=== PATIENT | male | born 1955 | race Caucasian/White ===

== ENCOUNTER 2021-01-08 08:49 | Day surgery (SDC) | payer BC ==
[2021-01-08] VITALS (15 sets, daily range): BP systolic 83–136; BP diastolic 51–85; PULSE 49–94; TEMP 98.2
[~2021-01-08] VITALS: Ht 175.3 cm; Wt 96.5 kg
[~2021-01-08 08:49] MED LIST: 00186-0370-20 IH; ALLEGRA 180MG180 MG PO; ALLEGRA180 MG PO; ARGININE PO; ASPIRIN 32325 MG/TAB PO; BIAXIN FILMTAB500 MG PO; BIAXIN PO; CALCIUM LACTAT100 MG PO; CARTIA XT240 MG PO; CLARITIN 1010 MG/TAB PO; DALVANCE IV; DIGOXIN0.25 MG PO; FEXOFENADINE180 MG PO; FISH OIL1000 MG PO; FLEXERIL 1010 MG/TAB PO; FLOVENT 220MCG7.9 GM IH; GARLIC SUPPLEM300 MG PO; GENTAMICIN180 MG/501 NS; L-ARGININE500 M2 PO; LEVAQUIN 750MG750 M1 PO; LOPRESSOR 550 MG/TAB PO; MULTI VITAMINS1 TAB PO; NO HOME MEDICATIONS; NORCO 325 MG-51 TAB PO; PREDNISONE10 MG PO; PREDNISONE20 MG; PREDNISONE20 MG PO; PROVENTIL0.09 MG/A1 IH; RT ALBUTER2.5 MG/0.5 IH; SINGULAIR 110 MG/TAB PO; SINGULAIR10 MG PO; SUPER EPA 1201200 MG PO; SYMBICORT1 AE1; VENTOLIN0.09 MG IH; VITAMIN B COMPL1 TA1 PO; VITAMIN C BUFF500 MG PO; VITAMIN C500 MG PO; VITAMIN E1000 U/CAP PO; XARELTO STARTER20 MG PO; XARELTO20 MG PO; XOPENEX 3 ML3 M1 IH; ZITHROMAX 250M250 MG; ZITHROMAX 250M250 MG PO
[2021-01-08 09:29] LABS: HEMATOCRIT 47.9 % (42.0-52.0); HEMOGLOBIN 16.4 g/dl (13.5-18.0); MEAN CELL VOLUME 91 fl (80.0-100.0); MEAN CORPUSCULAR HEMOGLOBIN 31 pg (27.0-31.0); MEAN CORPUSCULAR HGB CONC 34 g/dl (33.0-37.0); MEAN PLATELET VOLUME 9.8 fl (7.4-10.4); PLATELET COUNT 234 K/mm3 (130-400); RED BLOOD COUNT 5.25 M/mm3 (4.20-5.60)
[2021-01-08 09:36] LABS: INR 1.2 (0.8-3.0); PROTHROMBIN TIME 12.8 SECONDS (9.7-12.8)
[2021-01-08 09:38] LABS: PARTIAL THROMBOPLASTIN TIME 32.8 SECONDS (26.0-37.0)
[2021-01-08 09:46] LABS: CREATININE, serum 0.81 mg/dL (0.72-1.25); POTASSIUM 3.8 mmol/L (3.5-4.5)
[2021-01-08] MEDS ORDERED: 00186-0370-20 IH (09:48)
[2021-01-08] MEDS ORDERED: SPIRIVA RESPIMAT4 GM IH (09:48)
[2021-01-08] MEDS ORDERED: PROTONIX 40MG T40 MG PO (09:49)
[2021-01-08] MEDS ORDERED: ZYRTEC 10MG10 MG PO (09:49)
[2021-01-08] MEDS ORDERED: PROAIR HFA0.09 MG/AC IH (09:49)
[2021-01-08] MEDS ORDERED: ZESTRIL 10MG10 MG PO (09:50)
[2021-01-08] MEDS ORDERED: XARELTO20 MG PO (09:50)
[2021-01-08] MEDS ORDERED: NATURE'S BLEND100 M2 PO (09:51)
[2021-01-08] MEDS ORDERED: MASON NATURAL2000 IU PO (09:51)
[2021-01-08] MEDS ORDERED: TOPROL XL 25MG25 MG PO (09:51)
[2021-01-08] MEDS ORDERED: LOVENOX 100100 MG/ML SQ (09:52)
--- NOTE | 2021-01-08 11:40 | NUR ---
SEE MERGE DOCUMENTATION FOR MEDICATION ADMINISTRATION TIMES AND INTRA/POST PROCEDURE SEDATION ASSESSMENTS.
--- NOTE | 2021-01-08 15:50 | NUR ---
DC instructions reviewed with pt, he expresses understanding. Air was removed from TR band in 2ml increments with no bleeding or complication. Rt radial puncture site dressed with folded 2x2 and bandaid. Blood pressures had slowly trended up following procedure, but had began to trend down just prior to discharge. Pt was educated about safety with slow transfers and position changes. He plans to hold evening metoprolol dose and will contact cardiology office tomorrow if he feels like his blood pressures remain low. He is steady on feet in room. INT DC'd with catheter intact. He is assisted out to 's car by wheelchair with belongings.
[2021-01-15] MEDS ORDERED: FOLIKA-NC TABL1 EACH PO (11:02)
== END 2021-01-08 15:50 | disposition home or self-care (01) ==
LOC: COL.CAR 08:49
PROVIDERS: Internal Medicine Cardiovascular Disease
DX: I42.8 Other cardiomyopathies (principal); R94.39 Abnormal result of other cardiovascular function study; I48.0 Paroxysmal atrial fibrillation; J44.9 Chronic obstructive pulmonary disease, unspecified; J30.9 Allergic rhinitis, unspecified; K21.9 Gastro-esophageal reflux disease without esophagitis; E78.5 Hyperlipidemia, unspecified; Z86.16 Personal history of COVID-19; Z90.89 Acquired absence of other organs; Z79.899 Other long term (current) drug therapy
CPT/HCPCS: C1769; J1644; J2250; J3010; Q9967

== ENCOUNTER → 2021-01-20 | Outpatient (CLI) | payer BC ==
[~2021-01-20] MED LIST changes: +FOLIKA-NC TABL1 EACH PO; +LOVENOX 100100 MG/ML SQ; +MASON NATURAL2000 IU PO; +NATURE'S BLEND100 M2 PO; +PROAIR HFA0.09 MG/AC IH; +PROTONIX 40MG T40 MG PO; +SPIRIVA RESPIMAT4 GM IH; +TOPROL XL 25MG25 MG PO; +ZESTRIL 10MG10 MG PO; +ZYRTEC 10MG10 MG PO
== END ==
LOC: COL.RAD 07:30
DX: E04.1 Nontoxic single thyroid nodule (principal)

== ENCOUNTER 2021-02-10 08:48 | Day surgery (SDC) | payer BC, MEDICARE ==
[~2021-02-10] VITALS: Ht 175.4 cm; Wt 99.3 kg
[2021-02-10] VITALS (7 sets, daily range): BP systolic 102–113; BP diastolic 56–75; PULSE 49–88; TEMP 98.6
[2021-02-10] MEDS ORDERED: B COMPLEX #11 TA1 PO (09:41)
[2021-02-10 09:51] LABS: BASO % 0.3 % (0.0-2.0); EOS # 0.1 K/mm3 (0.0-0.7); EOS % 1.2 % (0.0-4.0); GRAN # 3.6 K/mm3 (1.4-6.5); GRAN % 61.7 % (42.2-75.2); HEMOGLOBIN 14.7 g/dl (13.5-18.0); LYMPH # 1.5 K/mm3 (1.2-3.4); LYMPH % 25.9 % (20.0-51.0); MEAN CELL VOLUME 90 fl (80.0-100.0); MEAN CORPUSCULAR HEMOGLOBIN 32 pg (27-31); MEAN CORPUSCULAR HGB CONC 35 g/dl (33.0-37.0); MEAN PLATELET VOLUME 9.8 fl (7.4-10.4); MONO # 0.6 K/mm3 (0.1-0.6); MONO % 10.7 % (1.7-9.3); PLATELET COUNT 222 K/mm3 (130-400); RED BLOOD COUNT 4.67 M/mm3 (4.20-5.60); REDCELL DISTRIBUTION WIDTH-CV 13.2 % (11.5-14.5)
[2021-02-10] MEDS ORDERED: TYLENOL 325MG325 MG PO (09:56)
[2021-02-10] MEDS ORDERED: MOTRIN 200200 MG/TAB PO (09:57)
[2021-02-10 10:03] LABS: INR 1.9 (0.8-3.0); PROTHROMBIN TIME 21.1 SECONDS (9.7-12.8)
[2021-02-10 10:06] LABS: PARTIAL THROMBOPLASTIN TIME 34.9 SECONDS (26.0-37.0)
[2021-02-10 10:14] LABS: CALCIUM 9.1 mg/dL (8.4-10.2); CREATININE, serum 0.69 mg/dL (0.72-1.25); MAGNESIUM 1.7 mg/dL (1.6-2.6); POTASSIUM 3.8 mmol/L (3.5-4.5)
[2021-02-10 10:26] LABS: THYROID STIMULATING HORMONE 0.58 uIU/mL (0.350-4.940)
--- NOTE | 2021-02-10 11:33 | NUR ---
Moderate sedation and post cardioversion instructions reviewed with pt, he expresses understanding. He has tolerated juice and crackers without difficulty.
[2021-02-10] MEDS ORDERED: PACERONE200 MG PO (11:54)
[2021-02-10] MEDS ORDERED: TOPROL XL 25MG25 MG PO (11:55)
--- NOTE | 2021-02-10 12:15 | NUR ---
DC instructions reviewed with pt. He expresses understanding. INT DC'd with catheter intact. He is steady on feet in room. He is assisted out to sister in law's car by wheelchair.
== END 2021-02-10 12:15 | disposition home or self-care (01) ==
LOC: COL.CAR 08:48
PROVIDERS: Internal Medicine Cardiovascular Disease
DX: I48.0 Paroxysmal atrial fibrillation (principal); J44.9 Chronic obstructive pulmonary disease, unspecified; J30.2 Other seasonal allergic rhinitis; E78.5 Hyperlipidemia, unspecified; Z86.16 Personal history of COVID-19; I42.8 Other cardiomyopathies; K21.9 Gastro-esophageal reflux disease without esophagitis; I10 Essential (primary) hypertension; I82.592 Chronic embolism and thrombosis of other specified deep vein of left lower extremity; Z77.22 Contact with and (suspected) exposure to environmental tobacco smoke (acute) (chronic); Z79.51 Long term (current) use of inhaled steroids; Z79.01 Long term (current) use of anticoagulants; Z79.899 Other long term (current) drug therapy
CPT/HCPCS: J2250; J2704; J7120

== ENCOUNTER → 2021-05-08 | Outpatient (CLI) | payer MEDICARE ==
[~2021-05-08] MED LIST changes: +B COMPLEX #11 TA1 PO; +MOTRIN 200200 MG/TAB PO; +PACERONE200 MG PO; +TYLENOL 325MG325 MG PO
== END ==
LOC: COL.RAD 07:46
DX: S46.211A Strain of muscle, fascia and tendon of other parts of biceps, right arm, initial encounter (principal); S46.811A Strain of other muscles, fascia and tendons at shoulder and upper arm level, right arm, initial encounter; M19.011 Primary osteoarthritis, right shoulder; X58.XXXA Exposure to other specified factors, initial encounter